=== PATIENT | male | born 1975 | race Caucasian/White ===

== ENCOUNTER 2022-03-26 15:56 | Emergency (ER) | payer SELFPAY ==
[~2022-03-26] VITALS: Ht 170.2 cm; Wt 95.5 kg
[2022-03-26 16:49] LABS: BASOPHILS % 0.5 % (0.0-2.0); EOSINOPHILS % 0.5 % (0.0-5.0); HEMATOCRIT. 42.2 % (42.0-52.0); HEMOGLOBIN. 14.7 g/dL (14.0-18.0); LYMPHOCYTES % 29.8 % (20.0-50.0); MEAN CORPUSCULAR HEMOGLOBIN 29.2 pg (28.0-32.0); MEAN CORPUSCULAR VOLUME 83.9 fL (80.0-94.0); MEAN PLATELET VOLUME 9.2 fl (7.4-10.4); MONOCYTES % 7.7 % (2.0-8.0); NEUTROPHILS % 61.5 % (40.0-76.0); PLATELET 202 x1000/uL (130-400); RED BLOOD CELL COUNT 5.02 mill/uL (4.7-6.1); RED CELL DISTRIBUTION WIDTH 13.9 % (11.6-14.6)
[2022-03-26 16:54] LABS: CHLORIDE 102 mEq/L (98-107)
[2022-03-26 16:56] LABS: PROTHROMBIN TIME 11.1 sec (9.6-11.0)
[2022-03-26 17:16] LABS: ETHANOL BLOOD < 10 mg/dL
[2022-03-26] MEDS ORDERED: AMLO5TAB88 MT (19:09)
[2022-03-26 19:40] VITALS: BP 156/98
[2022-03-26 19:41] LABS: CLARITY URINE CLEAR (CLEAR); COLOR URINE YELLOW (YELLOW); KETONES URINE TRACE (NEGATIVE); LEUKOCYTE ESTERASE URINE NEGATIVE (NEGATIVE); NITRITE URINE NEGATIVE (NEGATIVE); OCCULT BLOOD URINE NEGATIVE (NEGATIVE); PH URINE 5.5 (4.5-8.0); PROTEIN URINE 1+ (NEGATIVE); SPECIFIC GRAVITY URINE 1.026 (1.005-1.030); UROBILINOGEN URINE 0.2 E.U./dL (0.2-1.0)
[2022-03-26 20:20] LABS: *AMPHETAMINES SCREEN URINE NEGATIVE (NEGATIVE); *BARBITURATES SCREEN URINE NEGATIVE (NEGATIVE); *BENZODIAZEPINES SCREEN URINE NEGATIVE (NEGATIVE); *COCAINE SCREEN URINE NEGATIVE (NEGATIVE); CANNABINOID URINE SCREEN PRESUMTIVE POSITIVE (NEGATIVE); METHADONE URINE SCREEN NEGATIVE (NEGATIVE); OPIATES URINE SCREEN NEGATIVE (NEGATIVE); PHENCYCLIDINE URINE SCREEN NEGATIVE (NEGATIVE)
== END 2022-03-26 19:51 | disposition home or self-care (01) ==
LOC: ER 15:56
DX: I10 Essential (primary) hypertension (principal); I44.0 Atrioventricular block, first degree
CPT/HCPCS: 36415; 71045; 80053; 80305; 80320; 81003; 82962; 83880; 84484; 85025; 93005; 99285; G0480

== ENCOUNTER 2023-07-03 21:21 | Emergency (ER) | payer MEDICAID ==
[~2023-07-03] VITALS: Ht 170.2 cm; Wt 94.0 kg
[~2023-07-03 21:21] MED LIST: AMLO5TAB88 MT
[2023-07-03 21:41] VITALS: BP 151/88; PULSE 100; RESP 14; TEMP 98.3; O2SAT 98
== END 2023-07-04 03:00 | disposition left against medical advice (07) ==
LOC: ER 21:21
DX: H92.09 Otalgia, unspecified ear (principal); Z53.21 Procedure and treatment not carried out due to patient leaving prior to being seen by health care provider
CPT/HCPCS: 99281